=== PATIENT | female | born 2000 | race Caucasian/White ===

== ENCOUNTER → 2020-10-14 09:58 | Outpatient (CLI) | payer BC, SELFPAY ==
--- NOTE | 2020-10-14 | DI.US.S_ITS ---
PROCEDURE: US OB >= 14 WEEKS FETUS INDICATIONS: 20 WEEK ANATOMICAL SURVEY OUTSIDE/PRIOR DATING DATA: Last menstrual period (LMP): 05/25/2020. LMP-based estimated date of delivery (MICHAEL): 03/01/2021. First dating scan (date and location): 10/14/2020 at . Estimated date of delivery (MICHAEL) from first dating scan: 03/01/2021. TECHNIQUE: Real-time scanning was performed of the fetus, with image documentation and biometric measurements. Endovaginal scanning: Not performed COMPARISON: None. FINDINGS: General: A single living intrauterine gestation is present. Presentation: Transverse head to the left. Placenta: Placental position is anterior , without previa. Amniotic fluid index: 16.7 cm, normal range is 5-24 cm; largest pocket 4.5 cm. heart rate: 153 beats per minute. Maternal cervical canal: 4.0 cm long. Normal lower limit is 2.5 cm. biometrics: Biparietal diameter: 20 weeks 2 days Head circumference: 20 weeks 2 days Abdominal circumference: 20 weeks 4 days Femur length: 20 weeks 1 Estimated gestational age from initial scan: not applicable. Composite gestational age from present scan: 20 weeks 2 days Estimated weight and percentile: 350 g; 51% for gestational age. Measurement variability for biometric dating: +/- 7 days from 14 weeks to 15 weeks 6 days gestation, +/- 10 days from 16 weeks to 21 weeks 6 days gestation, +/- 2 weeks from 22 weeks to 27 weeks 6 days gestation, +/- 3 weeks for 28 weeks gestation or later. weight reference: 4500 g or EFW >90/95% is considered macrosomia or large for gestational age. EFW <10% is small for gestational age. EFW 5% or less is considered intra-uterine growth restriction. Anatomic survey: Neuro: Ventricles are non-dilated at less than 10 mm. Cisterna magna is normal at 3-11 mm. Cerebellum is normal in size and morphology. Nuchal skin fold: Normal at less than 6 mm between 14-21 weeks gestational age. Face: Nose and lips, facial profile are normal. Spine: No evidence for spina bifida. Heart: 4-chambered heart is present, with normal ventricular outflow tracts. Diaphragm: Diaphragm is intact. Stomach: Left-sided stomach is present. Kidneys: No hydronephrosis. Normal is less than 5 mm in 2nd trimester, less than 7 mm in 3rd trimester. Cord: 3-vessel cord. Cord insertion is 1.8 cm from the placental margin. Bladder: Normal in size. Extremities: All 4 extremities identified. IMPRESSION: 1. A single living intrauterine gestation with an estimated gestational age of 20 weeks 2 days corresponding to ultrasound MICHAEL 03/01/2021. Ultrasound dating concordant with clinical dating. 2. Placental cord insertion is 1.8 cm from the placental margin. 3. Otherwise normal anatomic survey. Dictated by: Mary Kay Wu M.D. on 10/14/2020 at 16:48 Approved by: Mary Kay Wu M.D. on 10/14/2020 at 16:53
== END ==
PROVIDERS: Referring Provider Nurse Practitioner Obstetrics & Gynecology; Visit Provider Nurse Practitioner Obstetrics & Gynecology
DX: Z36.89 Encounter for other specified antenatal screening (principal); Z3A.20 20 weeks gestation of pregnancy
CPT/HCPCS: 76811

== ENCOUNTER → 2020-11-25 08:20 | Outpatient (CLI) | payer BC, SELFPAY ==
[2020-11-25 08:44] LABS: Hematocrit 33.9 % (36-46); Hemoglobin 11.7 g/dL (12.0-16.0); Mean Corpuscular HGB Conc 34.6 % (30-36); Mean Corpuscular Hemoglobin 31.3 PG (26-34); Mean Corpuscular Volume 90.6 fL (80-100); Platelet Count 168 X10^3/uL (150-400); Red Blood Cell Count 3.74 X10^6/uL (4.0-5.2); Red Cell Distribution Width 13.4 % (11.6-14.8); White Blood Cell Count 6.9 X10^3/uL (4.5-11.0)
[2020-11-25 09:04] LABS: Glucose Fasting 82 mg/dL (70-100)
[2020-11-25 10:39] LABS: Glucose Tol Interpretation INTERPRETATION
[2020-11-25 10:47] LABS: Glucose 1 Hour 112 mg/dL (70-170)
[2020-11-25 12:17] LABS: Glucose 2 Hour 98 mg/dL (70-140)
== END ==
PROVIDERS: Referring Provider Nurse Practitioner Obstetrics & Gynecology; Visit Provider Nurse Practitioner Obstetrics & Gynecology
DX: Z34.90 Encounter for supervision of normal pregnancy, unspecified, unspecified trimester (principal); Z13.1 Encounter for screening for diabetes mellitus; Z3A.26 26 weeks gestation of pregnancy
CPT/HCPCS: 36415; 82951; 82952; 85027

== ENCOUNTER → 2021-02-02 15:24 | Outpatient (ROUT) | payer BC, SELFPAY | PROVIDERS: Visit Provider Nurse Practitioner Obstetrics & Gynecology | DX: Z34.90 Encounter for supervision of normal pregnancy, unspecified, unspecified trimester (principal); Z36.85 Encounter for antenatal screening for Streptococcus B; Z3A.36 36 weeks gestation of pregnancy | CPT/HCPCS: 87081 ==

== ENCOUNTER 2021-02-22 18:21 | Observation (INO) | payer OTHER, SELFPAY ==
--- NOTE | 2021-02-22 18:27 | PM.OBHP.1 ---
OB HPI Date/Time Date of admission: 02/22/21 Date Patient Seen: 02/22/21 Time Patient Seen: 18:27 History of Present Condition Chief complaint: induction : 1 Para: 0 Estimated Date of Delivery: 03/01/21 Estimated Gestational Age (weeks): 39 Narrative: Tracey Polanco is a 20 year old female # 39wks by LMP and concordant 8wk US who presents for admission for elective IOL. Has significant discomfort and in the family requiring imminent travel as her reasons for requesting elective IOL. Uncomplicated PN care w/ CNM, transferred in @ 20 wks after moving to the area from [place]. Desired epidural for labor analgesia. Had Turner balloon placed in clinic 02/22/21 @ 1815 which she reports fell out this morning before 0900. Indications Indication for induction OB: maternal discomfort and other (social) History of Present care: good care, initiated at week # (8), number of visits (11) and pounds weight gain (23) Dating criteria: LMP confirmed by 1st trimester US Ultrasounds: normal mid trimester US Obstetrical complications: none Medical complications: musculoskeletal (Left tibial plateau fx, ORIF and meniscus repair 09/15/2020) Preadmission Labs Blood type: A (+) positive -: Antibody screen: negative, GBS status: negative, HBsAG: negative, HIV: negative and RPR/VDLR: negative -: Chlamydia screen: not detected and Gonorrhea screen: not detected -: Rubella: immune HCT: 33.9 HCAB: negative PAP: Normal Cell-free DNA: declined Narrative: 2 hr gtt: 82/112/98 mg/dL Evaluation Evaluation Baseline heart rate: 145 Variability: Moderate (11-25) monitor accelerations: Present Monitor Decelerations: Absent Contraction Frequency (minutes): 4 Uterine Contraction Intensity: Mild Status: Category l Effacement (%): 50 station: -4 Position of cervix: posterior Consistency: medium Comments: unable to reach internal os [facility] Medical History (Updated 02/22/21 @ 18:38 by Mikaela Weller CNM) History of tibial fracture Surgical History (Updated 02/22/21 @ 18:38 by Mikaela Weller CNM) History of bunionectomy History of open reduction and internal fixation (ORIF) procedure Social History Smoking Status: Never smoker Meds Home Medications and Allergies Home Medications Medication Instructions Recorded Confirmed Type 1 02/22/21 History Allergies Allergy/AdvReac Type Severity Reaction Status Date / Time No Known Drug Allergies Allergy Verified 06/08/18 20:22 Review of Systems Review of Systems ROS: Yes All systems reviewed with the patient and are negative except as otherwise documented OB Exam Resp Effort & Inspection: normal respiratory effort Auscultation: clear to auscultation bilaterally Cardio Rate: regular rate Rhythm: regular rhythm Heart Sounds: S1 normal and S2 normal Assessment and Plan Assessment and Plan Assessment and Plan narrative: A: Term nullipara Elective IOL Cervical ripening indicated No indication for GBS prophylaxis P: Admit, routine orders. Cervical ripening w/ misoprostol overnight. Reassess in am.
[2021-02-22] MEDS: miSOPROStoL 25 MCG TABLET 50 MCG PO (20:12)
[2021-02-22 20:45] VITALS: BP 131/86
[2021-02-22] MEDS: CALCIUM CARBONATE 500 MG TAB 1000 MG PO (20:59)
[2021-02-22 21:14] LABS: COVID19 -Nasal RAPID Negative (Negative)
[2021-02-22 21:21] LABS: Add Manual Diff / Slide Review NO; Basophils Absolute Auto 0 /uL (0-100); Basophils Percent Auto 0.3 % (0-2); Eosinophils Absolute Auto 100 /uL (0-450); Eosinophils Percent Auto 1.2 % (2-4); Hematocrit 36.4 % (36-46); Hemoglobin 12.5 g/dL (12.0-16.0); Lymphocytes Absolute Auto 2000 /uL (1100-4500); Lymphocytes Percent Auto 19.1 % (25-40); Mean Corpuscular HGB Conc 34.3 % (30-36); Mean Corpuscular Hemoglobin 30.5 PG (26-34); Monocytes Absolute Auto 900 /uL (0-900); Monocytes Percent Auto 8.4 % (3-14); Neutrophils Absolute Auto 7500 /uL (1500-7000); Platelet Count 154 X10^3/uL (150-400); Red Blood Cell Count 4.09 X10^6/uL (4.0-5.2); Red Cell Distribution Width 13.4 % (11.6-14.8); White Blood Cell Count 10.6 X10^3/uL (4.5-11.0)
[2021-02-23] MEDS: miSOPROStoL 25 MCG TABLET 50 MCG PO ×2 (00:19→04:43)
--- NOTE | 2021-02-23 08:16 | PM.OBPNLAB ---
Date/Time Date Patient Seen: 02/23/21 Time Patient Seen: 08:00 Pain Control Comments: Slept well overnight, cramping did not become more intense or frequent but continued to have some mild cramping throughout the night. Coping well, partner remains present and supportive. VS: 125/76, HR 86 bpm, O2 100% on RA, T 35.8C Pelvic Exam Dilation (cm): 4.5 Effacement (%): 60 station: -4 Amniotic membrane status: Intact Contractions Monitor mode: External Pitocin rate (mU/min): 0 Contraction frequency (min): 4 Contraction duration (min): 1 Contraction pattern: Regular Contraction intensity: Mild Status status: Category l Heart Rate Baseline: 140 Monitor Accelerations: Present Monitor Decelerations: Absent Monitor Variability: Moderate Assessment and Plan Comments: A: Term nullipara Elective induction, completed cervical ripening Cat I FHR P: Begin Pitocin per protocol. Labor support as needed, encouraged frequent position changes and nutrition/hydration. Reassess in 4-6 hours.
[2021-02-23] MEDS: LACTATED RINGERS 1,000 ML 100 ML IV ×2 (08:20→17:36)
[2021-02-23] MEDS: OXYTOCIN PREMIX 30 UNIT/500 ML PLAST..BAG IV (08:21)
--- NOTE | 2021-02-23 12:32 | PM.OBPNLAB ---
Date/Time Date Patient Seen: 02/23/21 Time Patient Seen: 12:33 Pain Control Comments: Tracey remain comfortable, sitting up in bed visiting with her family. Denies change in cramping since starting pitocin. VS: BP 135/79mmHg, HR 80bpm, RR 16/min, T 35.8C Temporal Pelvic Exam Effacement (%): 60 station: -4 Amniotic membrane status: Intact Comments: CE deferred Contractions Monitor mode: External Pitocin rate (mU/min): 7 Contraction frequency (min): 3 Contraction duration (min): 1 Contraction pattern: Regular Contraction intensity: Mild Status status: Category l Heart Rate Baseline: 140 Monitor Accelerations: Present Monitor Decelerations: Absent Monitor Variability: Moderate Assessment and Plan Assessment: induction ongoing Plan: continuous present management Comments: Continue Pitocin titration per protocol until adequate contractions. Will consider canceling induction if no regular, painful contractions by this evening. Reassess in 4-6 hours or sooner prn.
--- NOTE | 2021-02-23 16:19 | PM.OBPNLAB ---
Date/Time Date Patient Seen: 02/23/21 Time Patient Seen: 16:19 Pain Control Comments: Tracey remains comfortable, although in the last two hours contractions have increased in intensity and feel similar in strength to cramping she had with Turner balloon in place. Family is supportive at bedside. VS: T: 35.7C, BP 119,77, HR: 83 bpm, RR 16/min Pelvic Exam Effacement (%): 60 station: -4 Amniotic membrane status: Intact Comments: Cervical exam deferred Contractions Monitor mode: External Pitocin rate (mU/min): 13 Contraction frequency (min): 3 Contraction duration (min): 1 Contraction pattern: Regular Contraction intensity: Mild Status status: Category l Heart Rate Baseline: 140 Monitor Accelerations: Present Monitor Decelerations: Absent Monitor Variability: Moderate Assessment and Plan Assessment: induction ongoing Plan: continuous present management Comments: P: Continue with Pitocin titration per protocol, will increase by 2 mu q 30 minutes. Recommended frequent position changes, activity, and rest PRN. Will reassess in 4 hours or sooner PRN, discussed with patient that if contractions do not continue to intensify with increasing Pitocin over the next 4 hours, will consider stopping induction. Tracey is in agreement.
--- NOTE | 2021-02-23 20:13 | P.DS_ITS ---
Discharge Providers Provider Date of admission: 02/22/21 18:21 Discharge Date: 02/23/21 Primary care physician: Mikaela Weller CNM Discharge provider: Mikaela Weller CNM Summary Hospital Course Date Patient Seen: 02/23/21 Time Patient Seen: 20:13 Diagnoses: Elective IOL, unsuccessful Hospital Course: 20 year old at 39 weeks 1 day. Admitted on 02/22 for elective IOL. Cervical ripening with miso overnight x 3 doses, followed by Pitocin per protocol. Pitocin increased to total of 25 mu without onset of regular, painful contractions. Cat 1 FHR throughout, membranes intact, and no signs/symptoms of infection. Cervical exam with Pitocin x 12 hours largely unchanged at 4.5/65%/- 4. Discussed risks and benefits of continuing induction of labor vs discharging home for expectant management. Patient prefers to discharge home tonight and will plan repeat IOL for 12/2 or onset of spontaneous labor. Status at Discharge Cognitive/behavioral status at discharge: oriented Functional status at discharge: independent ambulation Overall status at discharge: patient is back to baseline Time Spent with Patient Time attestation: Total time spent providing and/or coordinating discharge services: Objective Labs Result Diagrams: 02/22/21 21:00 Labs: Laboratory Results - last 24 hr 02/22/21 02/22/21 02/22/21 20:30 21:00 21:00 WBC 10.6 RBC 4.09 Hgb 12.5 Hct 36.4 MCV 89.0 MCH 30.5 MCHC 34.3 RDW 13.4 Plt Count 154 Neut % (Auto) 71.0 Lymph % (Auto) 19.1 L [place] % (Auto) 8.4 Eos % (Auto) 1.2 L Baso % (Auto) 0.3 Neut # (Auto) 7500 H Lymph # (Auto) 2000 [place] # (Auto) 900 Eos # (Auto) 100 Baso # (Auto) 0 SARS-CoV-2 (PCR) Negative Blood Type A Positive Antibody Screen Negative Exam Vital Signs (past 8 hours): T: 35.6 C, BP 127/86, HR 81 bpm, RR 16 Presentation: vertex Other: CE: 4.5/60/-4 Discharge Plan Discharge Plan Patient Disposition: Home Discharge orders & Medications Prescriptions: Continued 1 1 tab 0RF Follow up/Referrals: Mikaela Weller CNM [[employer]] - (Follow up in clinic prn IOL rescheduled for 03/03/21) Diet/Activity/Treatments Diet: Regular Activity: independent Skin/Wound/Dressing Care Report to your healthcare provider any signs of infection, such as:: chills, fever and increased pain
== END 2021-02-23 20:35 | disposition home or self-care (01) ==
PROVIDERS: Admitting Provider Nurse Practitioner Obstetrics & Gynecology; Referring Provider Nurse Practitioner Obstetrics & Gynecology; Visit Provider Nurse Practitioner Obstetrics & Gynecology
DX: O61.0 Failed medical induction of labor (principal); Z3A.39 39 weeks gestation of pregnancy
CPT/HCPCS: 36415; 85025; 86850; 86900; 86901; 87635; C9803; G0378; G0379; J2590

== ENCOUNTER 2021-03-03 07:09 | Inpatient (IN) | payer OTHER, SELFPAY ==
--- NOTE | 2021-03-03 07:22 | PM.OBHP.1 ---
OB HPI Date/Time Date of admission: 03/03/21 Date Patient Seen: 03/03/21 Time Patient Seen: 07:22 History of Present Condition Chief complaint: INDUCTION : 1 Para: 0 Estimated Date of Delivery: 03/01/21 Estimated Gestational Age (weeks): 40.2 Narrative: Tracey Polanco is a 20 year old female @ 40wks 2days by LMP and concordant 8wk US who presents for admission for elective IOL.? Has significant discomfort and in the family requiring imminent travel as her reasons for requesting elective IOL.? Uncomplicated PN care w/ CNM, transferred in @ 20 wks after moving to the area from [place].? Desired epidural for labor analgesia.? Had Turner balloon placed in clinic 02/21/21 which fell out the next morning. IOL was attempted w/ pitocin 02/23/21 (max dose 25mu/min) without uncomfortable contractions and Tracey agreed to go back home and wait another week. No significant changes since. Indications Other reason(s) for admission: Elective IOL History of Present care: good care, initiated at week # (8), number of visits (11) and pounds weight gain (23) Dating criteria: LMP confirmed by 1st trimester US Ultrasounds: normal mid trimester US Obstetrical complications: none Medical complications: musculoskeletal (musculoskeletal (Left tibial plateau fx, ORIF and meniscus repair 09/15/2020)) Preadmission Labs Blood type: A (+) positive -: Antibody screen: negative, GBS status: negative, HBsAG: negative, HIV: negative and RPR/VDLR: negative -: Chlamydia screen: not detected and Gonorrhea screen: not detected -: Rubella: equivocal HCT: 33.9 HCAB: negative PAP: Normal Cell-free DNA: declined Narrative: 2 hr gtt: 82/112/98 mg/dL Evaluation Evaluation Baseline heart rate: 145 Variability: Moderate (11-25) monitor accelerations: Present Monitor Decelerations: Absent Contraction Frequency (minutes): 0 Status: Category l Dilation (cm): 5 Dilation: >/=5 cm Effacement: 60-70% station: -3 Position of cervix: posterior Consistency: soft Cooper score: 7 Comments: SROM during cervial exam, copious clear fluid [facility] Medical History History of tibial fracture Surgical History History of bunionectomy History of open reduction and internal fixation (ORIF) procedure Social History Smoking Status: Never smoker Meds Home Medications and Allergies Home Medications Medication Instructions Recorded Confirmed Type 1 02/22/21 02/23/21 History Allergies Allergy/AdvReac Type Severity Reaction Status Date / Time Latex, Natural Rubber Allergy Verified 02/22/21 23:56 Review of Systems Review of Systems ROS: Yes All systems reviewed with the patient and are negative except as otherwise documented OB Exam Narrative Exam Narrative: VS: BP 127/77mmHg, HR 84bpm, T 35.9C Temporal Resp Effort & Inspection: normal respiratory effort Auscultation: clear to auscultation bilaterally Cardio Rate: regular rate Rhythm: regular rhythm Heart Sounds: S1 normal and S2 normal Presentation: vertex Assessment and Plan Assessment and Plan Assessment and Plan narrative: A: Term nullipara Elective induction SROM < 1 hour without signs of infection No indication for GBS prophylaxis FHR Cat 1 P: Admit to hospital for elective IOL. IV Pitocin for induction per protocol. Encouraged frequent position changes, upright positions, and movement. Reassess in 4 hours or sooner prn.
[2021-03-03 08:24] LABS: Add Manual Diff / Slide Review NO; Basophils Absolute Auto 100 /uL (0-100); Basophils Percent Auto 0.6 % (0-2); Eosinophils Absolute Auto 100 /uL (0-450); Hematocrit 36.8 % (36-46); Hemoglobin 12.7 g/dL (12.0-16.0); Lymphocytes Absolute Auto 1900 /uL (1100-4500); Lymphocytes Percent Auto 16.9 % (25-40); Mean Corpuscular HGB Conc 34.6 % (30-36); Mean Corpuscular Hemoglobin 30.3 PG (26-34); Mean Corpuscular Volume 87.8 fL (80-100); Monocytes Absolute Auto 800 /uL (0-900); Monocytes Percent Auto 6.9 % (3-14); Neutrophils Absolute Auto 8200 /uL (1500-7000); Neutrophils Percent Auto 74.6 % (50-75); Platelet Count 152 X10^3/uL (150-400); Red Blood Cell Count 4.19 X10^6/uL (4.0-5.2); Red Cell Distribution Width 13.4 % (11.6-14.8)
[2021-03-03] MEDS: OXYTOCIN PREMIX 30 UNIT/500 ML PLAST..BAG IV (08:24)
[2021-03-03] MEDS: LACTATED RINGERS 1,000 ML 100 ML IV ×2 (08:24→12:20)
[2021-03-03 08:43] LABS: COVID19 -Nasal RAPID Negative (Negative)
[2021-03-03 10:29] VITALS: BP 127/77
--- NOTE | 2021-03-03 12:16 | PM.OBPNLAB ---
Date/Time Date Patient Seen: 03/03/21 Time Patient Seen: 12:05 Pain Control Comments: Contractions feeling more intense for the last 2 hours, needing to breathe through them and feeling uncomfortable. Feels ready for epidural. Family supportive at bedside. VS: BP 101/56mmHg, HR 59bpm, T 36.1C Temporal Pelvic Exam Dilation (cm): 5 Effacement (%): 70 station: -3 Amniotic membrane status: Ruptured Comments: clear fluid, SROM x 5 hours without signs/symptoms of infection Contractions Date/Time contractions began: 829 Contractions on admission: none Monitor mode: External Pitocin rate (mU/min): 9 Contraction frequency (min): 2 Contraction duration (min): 1 Contraction pattern: Regular Contraction intensity: Moderate Status status: Category l Heart Rate Baseline: 145 Monitor Accelerations: Present Monitor Decelerations: Absent Monitor Variability: Moderate Assessment and Plan Assessment: induction ongoing Comments: Continue Pitocin titration per protocol. Frequent position changes with epidural anesthesia in place. Will reassess in 4 hours or sooner PRN.
--- NOTE | 2021-03-03 12:17 | P.PCN_ITS ---
Regional Block Pre-procedure Procedure: Continuous Lumbar Epidural for L&D Attending OB provider: Mikaela Weller PMH/ROS narrative: term induction, no complications ASA Class: II Labs: Hct 36.8 % (36-46) 03/03/21 08:00 Plt Count 152 X10^3/uL (150-400) 03/03/21 08:00 Medications: Current Medications Generic Name Dose Route Start Last Admin Trade Name Freq PRN Reason Stop Dose Admin Calcium Carbonate 1,000 mg 03/03/21 07:19 Calcium Carbonate 500 Mg Tab PO Q2HR PRN Dyspepsia Carboprost Tromethamine 250 mcg 03/03/21 07:19 Carboprost 250 Mcg/Ml Ampul IM Q90M PRN Bleeding Diphenhydramine HCl 25 mg 03/03/21 11:39 Diphenhydramine 50 Mg/Ml Vial IV Q10M PRN Pruritis Fentanyl 100 mcg 03/03/21 07:19 Fentanyl 100 Mcg/2 Ml Inj IV Q1H PRN Pain, Severe (7-10) Lactated Ringer's 1,000 mls @ 100 mls/hr 03/03/21 07:30 03/03/21 08:24 Lactated Ringers IV 100 mls/hr CONT JOSHUA Administration Oxytocin/Lactated Ringer's 30 unit in 500 mls @ 200 mls/hr 03/03/21 07:19 Oxytocin Premix IV CONT PRN Bleeding Protocol Tranexamic Acid 1,000 mg/ 100 mls @ 200 mls/hr 03/03/21 07:19 Sodium Chloride IV NOW PRN Bleeding Oxytocin/Lactated Ringer's 30 unit in 500 mls @ 3 mls/hr 03/03/21 07:30 03/03/21 08:24 Oxytocin Premix IV 3 milliunit/min TITRATE JOSHAU 3 mls/hr Administration Protocol 3 MILLIUNIT/MIN FENT 2MCG/ML BUPIV 0.125% EPI 200 mcg in 100 mls @ 6 mls/hr 03/03/21 11:45 Fentanyl/Bupiv/Ns 2mcg/Ml - 0.125% EPIDURAL CONT JOSHUA Methylergonovine Maleate 0.2 mg 03/03/21 07:19 Methylergonovine 0.2 Mg Tablet PO Q6HR PRN Heavy Bleeding Methylergonovine Maleate 0.2 mg 03/03/21 07:19 Methylergonovine 0.2 Mg/Ml Vial IM NOW PRN Bleeding Misoprostol 800 mcg 03/03/21 07:19 Misoprostol 200 Mcg Tablet FL NOW PRN Bleeding Misoprostol 1,000 mcg 03/03/21 07:19 Misoprostol 200 Mcg Tablet FL NOW PRN Bleeding Misoprostol 400 mcg 03/03/21 07:19 Misoprostol 200 Mcg Tablet SL NOW PRN Bleeding Nalbuphine HCl 2.5 mg 03/03/21 11:39 Nalbuphine 20 Mg/Ml Ampul IV Q10M PRN Pruritis Naloxone HCl 0.2 mg 03/03/21 07:19 Naloxone 0.4 Mg/Ml Vial IV Q2MIN PRN Opiate Reversal Ondansetron HCl 4 mg 03/03/21 07:19 Ondansetron 4 Mg/2 Ml Inj IV Q4HR PRN Nausea And Vomiting Oxytocin 10 unit 03/03/21 07:19 Oxytocin 10 Unit/Ml Vial IM NOW PRN Bleeding Allergies: Allergies Allergy/AdvReac Type Severity Reaction Status Date / Time Latex, Natural Rubber Allergy Verified 02/22/21 23:56 Procedure Insertion date: 03/03/21 Insertion time: 11:50 Prep/Local: betadine x3 and 1% lidocaine Interspace: L2-3 Needle: 18 gauge [facility] (CSE: 27g Pencan through [place], clear CSF, 1mL 0.25% bupiv MPF) Loss of resistance with: saline LATESHA at (cm): 66 Catheter placed at SKIN (cm): 10 Catheter in SPACE (cm): 4 Insertion: No CSF, No Blood, Yes Paresthesia with insertion, Yes Paresthesia with injection and No Test dose reaction Initial Medications TEST DOSE time: 11:50 TEST DOSE: 1.5% lidocaine with epinephrine 1:200k (mL): 3 BOLUS DOSE time: 12:00 BOLUS DOSE (mL): 3 BOLUS DOSE med: other (infusate) Infusion INFUSION: 0.125% bupivacaine and with fentanyl 2 mcg/mL Initial rate (mL/hr): 6 Subsequent interventions: + paresthesia with insertion of catheter to right. Catheter withdrawn from 12cm to 10cm at skin - when paresthesia resolved. 4cm remain in space. No paresthesia with test or bolus after withdrawing to 10cm at skin. 14:00 - predominantly one-sided block. Some help with PCEA. Increased rate to 8mL/h, gave 5mL clinician bolus. Post-procedure Anesthesia time START: 11:39 Anesthesia time END: 20:37 Post-procedure Anesthesia Assessment: Yes CV function: HR/BP stable, Yes Resp function: RR/sat/airway adequate, Yes Mental status appropriate and No Anesthesia complications
[2021-03-03] MEDS: FENT 2MCG/ML BUPIV 0.125% EPI 200 MCG/100 ML PLAST..BAG 6 MCG EPIDURAL (12:22)
--- NOTE | 2021-03-03 16:16 | PM.OBPNLAB ---
Date/Time Date Patient Seen: 03/03/21 Time Patient Seen: 16:05 Pain Control Pain control: epidural (Has occasional discomfort in LLQ, coping well after receiving a bolus from . ) Comments: BP 121/69mmHg, HR 67bpm, T 36.1C Temporal Pelvic Exam Dilation (cm): 6 Effacement (%): 95 station: -2 Amniotic membrane status: Ruptured Comments: Scant clear fluid Contractions Monitor mode: External Pitocin rate (mU/min): 18 Contraction frequency (min): 2 Contraction pattern: Regular Contraction intensity: Moderate Status status: Category l Heart Rate Baseline: 140 Monitor Accelerations: Present Monitor Decelerations: Absent Monitor Variability: Moderate Assessment and Plan Assessment: active labor Plan: continuous present management Comments: Continue pitocin titration, per protocol. Encourage rest and position changes. Reassess in 4-5 hours or sooner, PRN.
[2021-03-03] MEDS: ONDANSETRON 4 MG/2 ML INJ IV (18:01)
--- NOTE | 2021-03-03 21:21 | P.PCNOB_ITS ---
Events: Labor Induction Labor & Delivery Delivery date: 03/03/21 Intrapartal Events: Extended Tachycardia (During second stage) Cervical ripening method: none (for this admission; attempted IOL with Turner balloon and misoprostol completed on previous admission) Delivery augmentation: pitocin Delivery monitor: external FHT and external uterine Route of delivery: Episiotomy description: None L&D Laceration Description: Perineal - 2nd Degree and Labial (R labial split) Delivery repair: chromic (3.0) Estimated blood loss (mL): 225 Anesthesia Type: Epidural Narrative: Tracey labored in variety of positions, found to be complete at 1859. Started pushing at 1922 with good maternal efforts and slow but steady descent. tachycardia and decreased variability noted during second stage, Dr. William consulted for vacuum at 2024 for Cat II FHR tracing. RT called to stand by. NSVB of vigorous baby boy in RENA. Somersaulted through single loose nuchal cord. Shoulders delivered with ease, no additional maneuvers required. Terminal meconium noted. IV Pitocin given for AMTSL. After slowing of pulsations, cord double clamped by CNM and cut by baby's father Eben and cord blood collected. Gentle cord traction for AMTSL, delivery of intact, Shultze presentation placenta, 3VC. First degree perineal laceration and right labial split, repaired with 3.0 Chromic. QBL 225 mL. Mother and baby in stable condition as I left the room. [place] Baby 1: gender: Male Presentation: vertex Position: Left Occiput Transverse Placenta delivery description: Spontaneous Cord Vessel Description: 3 Vessels score (1 min): 9 score (5 min): 9 weight: 4.05 kg Plan for aftercare: Routine care
[2021-03-03] MEDS: DERMOPLAST SPRAY 20% 60 ML 1 SPRAY TOP (22:25)
[2021-03-03] MEDS: KETOROLAC 30 MG/ML VIAL IV (22:25)
[2021-03-04] MEDS: IBUPROFEN 600 MG TABLET PO ×2 (04:28→10:47)
[2021-03-04] MEDS: ACETAMINOPHEN 325 MG TABLET 650 MG PO (10:47)
--- NOTE | 2021-03-04 14:41 | PM.OBDS.1 ---
Discharge Providers Provider Date of admission: 03/03/21 07:09 Discharge Date: 03/04/21 Primary care physician: WILIAM Peres Consults: 03/04/21 21:17 Consult to Practicing Md Anesthesiologist Routine Comment: Discharge provider: Mikaela Weller CNM Summary Hospital Course Date Patient Seen: 03/04/21 Time Patient Seen: 14:42 Diagnoses: o70.1 Hospital Course: Tracey is voiding ambulating and independently, though baby has been very sleepy and has not fed much. Tolerating a general diet. Lochia is light, no clots. Pain is well controlled w/ PO medication. is present and supportive. Eager for discharge to home after consultatio this afternoon. Peripartum Data Infant Delivery Method: Natural Vaginal Laceration Description: Perineal - 2nd Degree and Labial Episiotomy description: None Procedures: NSVB complications: perineal laceration [place] 1: Gender: Male Disposition of : home Discharge Diagnosis (1) Second degree perineal laceration during delivery: Status: Acute Status at Discharge Cognitive/behavioral status at discharge: oriented Functional status at discharge: independent ambulation Overall status at discharge: patient is progressing back to baseline Time Spent with Patient Time attestation: Total time spent providing and/or coordinating discharge services: Time spent: Less than 30 minutes Specific discharge activities: discharge teaching- care Objective Labs Result Diagrams: 03/03/21 08:00 Exam Vital Signs (past 8 hours): BP 123/78mmHg, HR 85bpm, RR 16/min, T 97.8F Temporal Other: Fundus firm @ U-1, lochia light, perineum well approximated Discharge Plan Discharge Plan Patient Disposition: Home Provider Discharge Comment: pelvic rest x 6 weeks. Discharge orders & Medications Prescriptions: New ibuprofen 600 mg Tablet 600 mg PO Q6H PRN (Reason: Pain, Mild (1-3)) 14 Days Qty: 60 0RF Continued Vitamin Tablet 1 tab PO DAILY Qty: 0 0RF Follow up/Referrals: Mikaela Weller CNM [Advanced [facility] Glue Spreader] - (Follow-up by Telehealth 03/17/21 @ 9:45am Follow-up in office 04/13/21 @ 3pm) Diet/Activity/Treatments Diet: Diet as Tolerated Activity: pelvic rest x 6 weeks Skin/Wound/Dressing Care Report to your healthcare provider any signs of infection, such as:: chills, fever, increased pain, unusual drainage and unusual redness Visit Report/Discharge Packet Instructions: Depression
[2021-03-04 16:10] VITALS: BP 127/77; PULSE 70; RESP 14; TEMP 36.1
== END 2021-03-04 17:05 | disposition home or self-care (01) | DRG 807 ==
PROVIDERS: Admitting Provider Nurse Practitioner Obstetrics & Gynecology; Referring Provider Nurse Practitioner Obstetrics & Gynecology; Visit Provider Nurse Practitioner Obstetrics & Gynecology
DX: O70.1 Second degree perineal laceration during delivery (principal); Z37.0 Single live birth; Z3A.40 40 weeks gestation of pregnancy; O69.81X0 Labor and delivery complicated by cord around neck, without compression, not applicable or unspecified; O77.0 Labor and delivery complicated by meconium in amniotic fluid; O76 Abnormality in fetal heart rate and rhythm complicating labor and delivery; Z20.822 Contact with and (suspected) exposure to COVID-19
CPT/HCPCS: 01967; 36415; 59050; 85025; 86850; 86900; 86901; 87635; C9803; G0379; J1885; J2405; J2590

== ENCOUNTER → 2022-06-09 18:27 | Outpatient (ROUT) | payer OTHER, SELFPAY ==
[2022-06-09 19:26] LABS: HCG Quantitative /Beta subunit 27770 mIU/mL
== END ==
PROVIDERS: Visit Provider Advanced Practice Midwife
DX: N91.2 Amenorrhea, unspecified (principal)
CPT/HCPCS: 84702

== ENCOUNTER → 2022-06-14 15:28 | Outpatient (CLI) | payer OTHER, SELFPAY ==
--- NOTE | 2022-06-14 15:31 | DI.US.S_ITS ---
PROCEDURE: US OB <= 14 WEEKS FETUS INDICATIONS: DATING AND VIABILITY OUTSIDE/PRIOR DATING DATA: Last menstrual period (LMP): 03/27/2022. LMP-based estimated date of delivery (MICHAEL): 01/01/2023. First dating scan (date and location): 06/14/2022. Estimated date of delivery (MICHAEL) from first dating scan: 01/24/2023. The calculations are made using the ultrasound MICHAEL of 01/24/2023. TECHNIQUE: Real-time scanning was performed of the fetus and maternal pelvic organs, with image documentation. Endovaginal scanning was also performed to better visualize the fetus and maternal ovaries. COMPARISON: None. FINDINGS: Embryo: Bazine-rump length measuring 1.6 cm, gestational age 8 weeks 0 days. Heart rate: 171 bpm Yolk sac is noted. No perigestational hemorrhage. Maternal organs: Large left ovarian anechoic cyst measuring 9 x 7.5 x 7.1 cm. Right ovary is unremarkable. IMPRESSION: 1. Theodore living intrauterine at 8 weeks 0 days based on today's crown rump length. 2. No perigestational hemorrhage. 3. Large anechoic left ovarian cyst measuring 9 cm. Recommend attention on follow-up scans. We strive to produce accurate, complete, and clear reports of imaging services. To assist us in improving patient care, this report was composed using standard report templates and voice recognition software. Therefore, it may contain abnormal punctuation, insertions and/or omissions. Occasional wrong-word or sound-alike substitutions may occur. Though we review the report and make efforts to correct it, we do recommend that the report be read carefully in proper context to recognize any text inaccuracies. Dictated by: Too Chirinos M.D. on 06/14/2022 at 17:14 Approved by: Too Chirinos M.D. on 06/14/2022 at 17:18
== END ==
PROVIDERS: PCP Nurse Practitioner Obstetrics & Gynecology; Referring Provider Nurse Practitioner Obstetrics & Gynecology; Visit Provider Nurse Practitioner Obstetrics & Gynecology
DX: Z36.87 Encounter for antenatal screening for uncertain dates (principal); O34.81 Maternal care for other abnormalities of pelvic organs, first trimester; N83.292 Other ovarian cyst, left side; Z3A.08 8 weeks gestation of pregnancy
CPT/HCPCS: 76801; 76817; 93976

== ENCOUNTER → 2022-10-16 08:06 | Outpatient (CLI) | payer OTHER, SELFPAY ==
[2022-10-16 09:03] LABS: Hematocrit 33.6 % (36-46); Hemoglobin 11.8 g/dL (12.0-16.0); Mean Corpuscular HGB Conc 35.2 % (30-36); Mean Corpuscular Hemoglobin 31.4 PG (26-34); Mean Corpuscular Volume 89.2 fL (80-100); Platelet Count 165 X10^3/uL (150-400); Red Blood Cell Count 3.77 X10^6/uL (4.0-5.2); Red Cell Distribution Width 13.3 % (11.6-14.8); White Blood Cell Count 6.8 X10^3/uL (4.5-11.0)
[2022-10-16 09:15] LABS: Glucose Fasting Gestational 85 mg/dL (76-95)
[2022-10-16 09:58] LABS: Glucose 1 Hour Gest 139 mg/dL (76-180)
[2022-10-16 11:11] LABS: Glucose 2 Hour Gest 89 mg/dL (76-155)
[2022-10-16 11:36] LABS: Glucose Tol Interp,Gestational INTERPRETATION
[2022-10-16 12:35] LABS: Glucose 3 Hour Gest 100 mg/dL (76-140)
== END ==
PROVIDERS: PCP Nurse Practitioner Obstetrics & Gynecology; Referring Provider Advanced Practice Midwife; Visit Provider Advanced Practice Midwife
DX: Z34.02 Encounter for supervision of normal first pregnancy, second trimester (principal)
CPT/HCPCS: 36415; 82951; 82952; 85027

== ENCOUNTER 2023-01-29 07:20 | Observation (INO) | payer OTHER, SELFPAY | END 2023-01-29 07:58 | disposition home or self-care (01) | PROVIDERS: Admitting Provider Nurse Practitioner Obstetrics & Gynecology; PCP Nurse Practitioner Obstetrics & Gynecology; Referring Provider Nurse Practitioner Obstetrics & Gynecology; Visit Provider Nurse Practitioner Obstetrics & Gynecology | DX: O48.0 Post-term pregnancy (principal); Z3A.40 40 weeks gestation of pregnancy | CPT/HCPCS: G0378; G0379 ==

== ENCOUNTER 2023-01-29 11:13 | Inpatient (IN) | payer OTHER, SELFPAY ==
--- NOTE | 2023-01-29 11:33 | P.HPOB_ITS ---
OB HPI Date/Time Date of admission: 01/29/23 Date Patient Seen: 01/29/23 Time Patient Seen: 11:33 History of Present Condition Chief complaint: OB : 2 Para: 1 Estimated Date of Delivery: 01/24/23 Estimated Gestational Age (weeks): 40.5 Narrative: Tracey Polanco is a 22 year old female @ [id number] by 8wk US here for elective IOL. Had a pa balloon placed outpatient this morning. Has been walking around and feeling mild contractions. Uncomplicated PN care w/ CNMs. Planning epidural and does not want to have her baby on Halloween. Partner is present and supportive. History of Present care: good care, initiated at week # (8wks), number of visits (10) and pounds weight gain (27) Dating criteria: based on 1st trimester US only Ultrasounds: normal mid trimester US Obstetrical complications: none Medical complications: none Preadmission Labs Blood type: A (+) positive -: Antibody screen: negative, GBS status: negative, HBsAG: negative, HIV: negative and RPR/VDLR: negative -: Chlamydia screen: not detected and Gonorrhea screen: not detected -: Rubella: immune and Varicella: immune HCT: 33.6 HCAB: negative Cell-free DNA: Negative 3 hr GTT: 1 hr (139), 2 hr (89) and 3 hr (100) Fasting blood glucose: 85 Prior (ies) History: 03/03/2021- NSVB @ 40.2wks (elective IOL), epidural, 2nd degree perineal laceration, 4500grams, male ([place]) Evaluation Evaluation Baseline heart rate: 130 Variability: Moderate (11-25) monitor accelerations: Present Monitor Decelerations: Absent Comments: CE deferred, Pa balloon in place Cooper-6 at time of pa balloon placement at 0730 this morning (2.5/70%/high, soft, posterior) PFSH Medical History History of tibial fracture Surgical History History of open reduction and internal fixation (ORIF) procedure History of bunionectomy Social History Smoking Status: Never smoker Meds Home Medications and Allergies Home Medications Medication Instructions Recorded Confirmed Type prenat.vits,vianey,aek-lwok-nrajy 1 tab PO DAILY ##0 02/22/21 03/03/21 History Allergies Allergy/AdvReac Type Severity Reaction Status Date / Time Latex, Natural Rubber Allergy Verified 02/22/21 23:56 Review of Systems Review of Systems ROS: Yes All systems reviewed with the patient and are negative except as otherwise documented OB Exam Vital signs Blood Pressure: 107/64 Pulse Rate: 95 Temperature: 97.5 F Resp Effort & Inspection: normal respiratory effort Auscultation: clear to auscultation bilaterally Cardio Rate: regular rate Rhythm: regular rhythm Presentation: vertex Objective Labs 01/29/23 14:17 Assessment and Plan Assessment and Plan Assessment and Plan narrative: A: Term primipara Elective IOL No indication for GBS prophylaxis Cervical ripening in progress Cat I FHR P: Admit, routine labor orders. Plan low dose pitocin augmentation (Max 6mu/min until pa balloon comes out) once staffing allows. Labor support PRN Epidural when requested Reassess in 4 hours or sooner, PRN
--- NOTE | 2023-01-29 11:33 | PM.PROC.1 ---
Procedures Date/Time Date of procedure: 01/29/23 Time of procedure: 07:30 General Procedure description: 22YO @ [id number] by 8wk US here for Turner balloon placement. Baseline FHR: 125bpm moderate variability Accels present Decels absent Reactive NST Verified written consent for induction of labor. Procedure explained. Turner balloon placed manually. Turner catheter balloon inserted into os and inflated with 60mL normal saline. Tubing clamped. Patient tolerated the procedure well. FHR remained Cat I by continuous EFM through out procedure. Anticipatory guidance given for cramping, vaginal bleeding and passage of cervical ripening balloon. Patient plans to go get breakfast and wait for compliance reviewer to allow for IOL admission.
[2023-01-29] MEDS: OXYTOCIN PREMIX 30 UNIT/500 ML PLAST..BAG IV (14:11)
[2023-01-29 14:26] LABS: Add Manual Diff / Slide Review NO; Basophils Absolute Auto 100 /uL (0-100); Eosinophils Absolute Auto 100 /uL (0-450); Eosinophils Percent Auto 0.7 % (2-4); Hematocrit 34.3 % (36-46); Hemoglobin 11.6 g/dL (12.0-16.0); Lymphocytes Absolute Auto 1700 /uL (1100-4500); Lymphocytes Percent Auto 14.9 % (25-40); Mean Corpuscular HGB Conc 33.8 % (30-36); Mean Corpuscular Hemoglobin 29.4 PG (26-34); Monocytes Absolute Auto 700 /uL (0-900); Monocytes Percent Auto 6.4 % (3-14); Neutrophils Absolute Auto 8500 /uL (1500-7000); Platelet Count 163 X10^3/uL (150-400); Red Blood Cell Count 3.94 X10^6/uL (4.0-5.2); Red Cell Distribution Width 13.6 % (11.6-14.8); White Blood Cell Count 11.1 X10^3/uL (4.5-11.0)
--- NOTE | 2023-01-29 16:14 | PM.OBPNLAB ---
Date/Time Date Patient Seen: 01/29/23 Time Patient Seen: 16:14 Pain Control Pain control: tolerating well Comments: Pitocin was started at 1413. Turner balloon came out at 1437. Patient has been sitting up in bed feeling, mild contractions. No vaginal bleeding or leaking of fluid. Eager for AROM to get things going. VS: BP 117/86mmHg, HR 65bpm, T 36.3C Temporal Pelvic Exam Dilation (cm): 4 Effacement (%): 70 station: -3 Amniotic membrane status: Ruptured (AROM, clear) Contractions Monitor mode: External Pitocin rate (mU/min): 4 Contraction frequency (min): 3 Contraction duration (min): 1 Contraction intensity: Mild Status status: Category l Heart Rate Baseline: 130 Monitor Accelerations: Present Monitor Decelerations: Absent Monitor Variability: Moderate Assessment and Plan Assessment: induction ongoing Plan: continuous present management Comments: Continue pitocin titration, per protocol Epidural when requested Reassess in 4 hours or sooner, PRN
[2023-01-29 16:44] VITALS: BP 107/64; PULSE 95; TEMP 36.4
[2023-01-29 19:13] VITALS: BP 107/64
--- NOTE | 2023-01-29 20:30 | PM.ANES.PR ---
Operative Date/Time/Diagnoses Date of procedure: 01/29/23 Time of procedure: 18:24 Pre-op diagnosis: Labor Pain Post-op diagnosis: same Note Patient is a requesting labor epidural for labor pain
--- NOTE | 2023-01-29 20:32 | PM.AN.REGBLK ---
Regional Block Pre-procedure Procedure: Continuous Lumbar Epidural for L&D Attending OB provider: Mikaela Weller PMH/ROS narrative: Patient is a requesting labor epidural for labor pain Hx: No personal or family history of anesthesia problems. Exam narrative: Mallampati: 2; good neck ROM, T.M. > 3 cm ASA Class: II Labs: Hct 34.3 % (36-46) L 01/29/23 14:17 Plt Count 163 X10^3/uL (150-400) 01/29/23 14:17 Medications: Current Medications Generic Name Dose Route Start Last Admin Trade Name Freq PRN Reason Stop Dose Admin Calcium Carbonate 1,000 mg 01/29/23 11:30 Calcium Carbonate 500 Mg Tab PO Q4HR PRN Dyspepsia Carboprost Tromethamine 250 mcg 01/29/23 11:30 Carboprost 250 Mcg/Ml Ampul IM Q90M PRN Bleeding Diphenhydramine HCl 25 mg 01/29/23 20:27 Diphenhydramine 50 Mg/Ml Vial IV Q10M PRN Pruritis Fentanyl 100 mcg 01/29/23 11:30 Fentanyl 100 Mcg/2 Ml Inj IV Q1H PRN Pain, Severe (7-10) Oxytocin/Lactated Ringer's 30 unit in 500 mls @ 200 mls/hr 01/29/23 11:30 Oxytocin Premix IV CONT PRN Bleeding Protocol Tranexamic Acid 1,000 mg/ 100 mls @ 200 mls/hr 01/29/23 11:30 Sodium Chloride IV NOW PRN Bleeding Oxytocin/Lactated Ringer's 30 unit in 500 mls @ 2 mls/hr 01/29/23 11:30 01/29/23 14:11 Oxytocin Premix IV 2 milliunit/min TITRATE JOSHUA 2 mls/hr Administration Protocol 2 MILLIUNIT/MIN Lactated Ringer's 1,000 mls @ 100 mls/hr 01/29/23 11:30 Lactated Ringers IV CONT JOSHUA FENT 2MCG/ML BUPIV 0.1% EPI 200 mcg in 100 mls @ 6 mls/hr 01/29/23 20:30 Fentanyl/Bupiv/Ns 2mcg/Ml - 0.1% EPIDURAL CONT JOSHUA Lidocaine HCl 20 ml 01/29/23 11:30 Lidocaine 1% 20 Ml INJ INTRA-OP PRN Post Delivery Methylergonovine Maleate 0.2 mg 01/29/23 11:30 Methylergonovine 0.2 Mg Tablet PO Q6HR PRN Heavy Bleeding Methylergonovine Maleate 0.2 mg 01/29/23 11:30 Methylergonovine 0.2 Mg/Ml Vial IM NOW PRN Bleeding Misoprostol 800 mcg 01/29/23 11:30 Misoprostol 200 Mcg Tablet PA NOW PRN Bleeding Misoprostol 400 mcg 01/29/23 11:30 Misoprostol 200 Mcg Tablet SL NOW PRN Bleeding Nalbuphine HCl 2.5 mg 01/29/23 20:27 Nalbuphine 20 Mg/Ml Ampul IV Q10M PRN Pruritis Naloxone HCl 0.2 mg 01/29/23 11:30 Naloxone 0.4 Mg/Ml Vial IV Q2MIN PRN Opiate Reversal Ondansetron HCl 4 mg 01/29/23 11:30 Ondansetron 4 Mg/2 Ml Inj IV Q4HR PRN Nausea And Vomiting Oxytocin 10 unit 01/29/23 11:30 Oxytocin 10 Unit/Ml Vial IM NOW PRN Bleeding Allergies: Allergies Allergy/AdvReac Type Severity Reaction Status Date / Time Latex, Natural Rubber Allergy Verified 02/22/21 23:56 Procedure Insertion date: 01/29/23 Insertion time: 18:27 Prep/Local: 1% lidocaine (Prep with Chloroprep; Sterile drape, gloves and technique throughout procedure) Interspace: l 4-5 Patient position: sitting Needle: 18 gauge Hustead Loss of resistance with: saline LATESHA at (cm): 6 Catheter placed at SKIN (cm): 11 Catheter in SPACE (cm): 5 Sensory level: T10 Insertion: No CSF, No Blood, No Paresthesia with insertion, No Paresthesia with injection and No Test dose reaction Initial Medications TEST DOSE time: 18:34 TEST DOSE: 1.5% lidocaine with epinephrine 1:200k (mL): 5 BOLUS DOSE time: 18:35 BOLUS DOSE (mL): 5 BOLUS DOSE med: other (2% Lidocaine) Infusion INFUSION: 0.125% bupivacaine and with fentanyl 2 mcg/mL Initial rate (mL/hr): 10 Post-procedure Anesthesia time START: 18:34 Anesthesia time END: 23:00 Post-procedure Anesthesia Assessment: Yes CV function: HR/BP stable, Yes Resp function: RR/sat/airway adequate, Yes Post-op hydration adequate, Yes Pain control adequate, Yes Nausea & vomiting absent, Yes Temperature > 36 C and Yes Mental status appropriate
--- NOTE | 2023-01-29 23:33 | PM.OBPRVD ---
Events: Labor Induction (elective) Labor & Delivery Delivery date: 01/29/23 Intrapartal Events: None Cervical ripening method: per Turner bulb protocol Induction method: per pitocin protocol Delivery augmentation: rupture of membranes Delivery monitor: external FHT and external uterine Route of delivery: Episiotomy description: None L&D Laceration Description: None Quantitative Blood Loss: 200 Anesthesia Type: Epidural Narrative: Tracey's labor progressed well with pitocin augmentation (max dose 10mu/min), clear fluid (total ROM 7 hours) and adequate epidural anesthesia. Tracey began to feel increasing rectal pressure and was checked and found to be C/C/0 at initiation of second stage. Tracey pushed well with coaching and encouragement resulting in steady descent of vertex. NSVB of a vigorous baby boy in CHRISTI position with a compound left hand. There was no nuchal cord and the shoulders delivered easily, without additional maneuvers. was placed on maternal abdomen for drying and skin to skin. Remaining 30 units of pitocin in 500mL LR was increased to 350mL/hr for AMTSL. After cessation of pulsation, the cord was double clamped by CNM and cut by FOB. Cord blood sample was collected to hold. Gentle cord traction and a single maternal push led to spontaneous, Schultze delivery of an apparently intact placenta, membranes an 3VC. Fundus immediately firm with large clots expressed, then minimal bleeding. Inspection revealed no lacerations to vagina or perineum. QBL 200mL. Both mother and baby stable and skin to skin as I left the room. Baby 1: gender: Male Presentation: vertex Position: Right Occiput Anterior Placenta delivery description: Spontaneous Cord Vessel Description: 3 Vessels score (1 min): 9 score (5 min): 10 weight: 4.109 kg Plan for aftercare: Routine care
[2023-01-29] MEDS: diphenhydrAMINE 50 MG/ML VIAL 25 MG IV (23:36)
[2023-01-30] MEDS: ACETAMINOPHEN 325 MG TABLET 650 MG PO (03:05)
[2023-01-30] MEDS: KETOROLAC 30 MG/ML VIAL IV (03:05)
--- NOTE | 2023-01-30 08:21 | PM.OBDS.1 ---
Discharge Providers Provider Date of admission: 01/29/23 11:13 Discharge Date: 01/30/23 Primary care physician: Mikaela Weller CNM Consults: 01/30/23 23:30 Consult to Human Resource Professional Routine Discharge provider: Barbi Hurley CNM, WILIAM Summary Hospital Course Date Patient Seen: 01/30/23 Time Patient Seen: 08:21 Diagnoses: Z39.1 o80 Hospital Course: Came in for elective induction of labor. Received pa catheter, pitocin, progressed well to complete and had a normal 2nd stage. Intact perineum, QBL WNL. well. Desires discharge early and agrees to follow up tomorrow in [facility] with baby. Peripartum Data Delivery Method: Natural Vaginal Laceration Description: None Episiotomy description: None Discharge Diagnosis (1) Supervision of normal in third trimester: Status: Acute (2) Intact perineum: Status: Acute (3) (normal spontaneous vaginal delivery): Status: Acute (4) Mother currently breast-feeding: Status: Acute Time Spent with Patient Time attestation: Total time spent providing and/or coordinating discharge services: Objective Labs 01/29/23 14:17 Labs: Laboratory Results - last 24 hr 01/29/23 14:17 WBC 11.1 H RBC 3.94 L Hgb 11.6 L Hct 34.3 L MCV 87.0 MCH 29.4 MCHC 33.8 RDW 13.6 Plt Count 163 Neut % (Auto) 77.0 H Lymph % (Auto) 14.9 L [place] % (Auto) 6.4 Eos % (Auto) 0.7 L Baso % (Auto) 1.0 Neut # (Auto) 8500 H Lymph # (Auto) 1700 [place] # (Auto) 700 Eos # (Auto) 100 Baso # (Auto) 100 Blood Type A Positive Antibody Screen Negative Exam Vital Signs (past 8 hours): BP: 114/53 mmHg HR: 63 bpm T: 35.7C Other: Fundus firm, midline, at U Lochia rubra, light, no clots Perineum intact Discharge Plan Discharge Plan Patient Disposition: Home Discharge orders & Medications Prescriptions: Continued prenat.vits,vianey,[id number] Tablet 1 tab PO DAILY Qty: 0 Follow up/Referrals: Mikaela Weller CNM [Primary Care Provider] - 2 Weeks (01/31/23 @ 3:15pm for testing 2 weeks - PHONE - Sunday02/12/23 1:15pm 6 weeks - IN PERSON - Sunday03/12/23 11:15am) Barbi Hurley, [facility], WILIAM [Advanced Personal Shopper] - 1 Day Diet/Activity/Treatments Diet: Diet as Tolerated and Regular Diet comment: High fiber, hydrate! Activity: Low patel, in and around bed for 2 weeks Skin/Wound/Dressing Care Skin care: Gentle Report to your healthcare provider any signs of infection, such as:: chills, fever, increased pain, unusual drainage and unusual redness Visit Report/Discharge Packet Instructions: DI for Depression Stand Alone Forms: Discharge: Care, Patient Portal/API Discharge Data Primary Care Provider: Mikaela Weller
[2023-01-30] MEDS: IBUPROFEN 600 MG TABLET PO (09:14)
[2023-01-30 10:02] VITALS: BP 115/78; PULSE 64; RESP 16; TEMP 36.4
== END 2023-01-30 10:44 | disposition home or self-care (01) | DRG 807 ==
PROVIDERS: Admitting Provider Nurse Practitioner Obstetrics & Gynecology; PCP Nurse Practitioner Obstetrics & Gynecology; Referring Provider Nurse Practitioner Obstetrics & Gynecology; Visit Provider Nurse Practitioner Obstetrics & Gynecology
DX: O80 Encounter for full-term uncomplicated delivery (principal); Z37.0 Single live birth; Z3A.40 40 weeks gestation of pregnancy
CPT/HCPCS: 36415; 59050; 85025; 86850; 86900; 86901; G0378; G0379; J1200; J1885; J2590